=== PATIENT | female | born 1965 | race Caucasian/White ===

== ENCOUNTER → 2018-05-04 | Outpatient (CLI) | payer OTHER ==
[~2018-05-04] VITALS: Ht 157.5 cm; Wt 55.8 kg
[~2018-05-04] MED LIST: EXCEDRIN EXTRA1 EACH PO; MOTRIN IB200 MG PO
== END | disposition home or self-care (01) ==
LOC: AMB 04-13 09:30
PROC: 0DBP8ZX Excision of Rectum, Via Natural or Artificial Opening Endoscopic, Diagnostic (ICD-10-PCS; principal; 2018-05-04)
DX: Z12.11 Encounter for screening for malignant neoplasm of colon (principal); K62.1 Rectal polyp; K57.30 Diverticulosis of large intestine without perforation or abscess without bleeding
CPT/HCPCS: 88305; J7643